=== PATIENT | female | born 1955 | race Caucasian/White ===

== ENCOUNTER 2016-05-07 09:19 | Emergency (ER) | payer BC ==
[2016-05-07] MEDS ORDERED: Ketorolac INJ* 30 MG/ML 1 ML VIAL IM ONE (10:47)
[2016-05-07] MEDS ORDERED: SUMAtriptan SQ* 6 MG/0.5 ML VIAL SUBCUT ONE (10:48)
[2016-05-07] MEDS ORDERED: Ondansetron ODT TAB* 4 MG PO ONE (10:49)
[2016-05-07] MEDS ORDERED: Metoclopramide TAB* 10 MG PO ONE (10:49)
[2016-05-07 11:00] VITALS: BP 135/83
--- NOTE | 2016-05-07 11:15 | UC ---
General HPI - HPI Summary HPI Summary: Today she was hit in the face by a cow. the impact was under the nose. she has no blurry vision or trouble breathing. no headache. no diploplia. - History of Current Complaint Chief Complaint: UCHeadInjury Stated Complaint: FACIAL INJURY Time Seen by Provider: 05/07/16 10:42 Hx Obtained From: Patient Onset/Duration: Sudden Onset - Allergy/Home Medications Allergies/Adverse Reactions: Allergies Allergy/AdvReac Type Severity Reaction Status Date / Time Codeine Allergy GI Upset Verified 05/07/16 10:49 Ibuprofen Allergy Kidney Verified 05/07/16 10:49 Failure Iodine Allergy Facial Verified 05/07/16 10:49 Swelling Morphine Allergy Anaphylatic Verified 05/07/16 10:49 Shock Gluten Allergy GI Upset, Uncoded 05/07/16 10:49 Burping Poultry Allergy Congestion, Uncoded 05/07/16 10:49 Vomiting, Diarrhea PMH/Surg Hx/FS Hx/Imm Hx Endocrine History Of: Reports: Thyroid Disease - hypo Cardiovascular History Of: Reports: Hypertension - Surgical History Surgical History: Yes Surgery Procedure, Year, and Place: Cholecystectomy. Hysterectomy. Left Rotator Cuff Repair. Left Knee Meniscus Arthroscopy. Stomach Bypass for blockage - Family History Known Family History: Positive: Hypertension - Social History Occupation: Employed Full-time - [employer]. Alcohol Use: None Substance Use Type: None Smoking Status (MU): Never Smoked Tobacco Review of Systems Eyes: Negative All Other Systems Reviewed And Are Negative: Yes Physical Exam Triage Information Reviewed: Yes Appearance: Well-Appearing, No Pain Distress, Well-Nourished Vital Signs: Initial Vital Signs Temp 98.7 F 05/07/16 10:51 Pulse 58 05/07/16 10:51 Resp 18 05/07/16 10:51 BP 135/83 05/07/16 10:51 Pulse Ox 100 05/07/16 10:51 Vital Signs Reviewed: Yes Eye Exam: Normal Eyes: Positive: Conjunctiva Clear ENT Exam: Other - bridge of nose bruised and tender but well alligned. there is mild bruising under the left eye and maxilla. orbits intact. EOMI. jaw full rom and she is able to bite down without significant pain.no septal hematoma. septum does appear mildly deviated to the left. ENT: Positive: Pharynx normal, Pharyngeal erythema, Nasal congestion Dental Exam: Normal Neck exam: Normal Neck: Positive: Supple Respiratory Exam: Normal Respiratory: Positive: Chest non-tender Cardiovascular Exam: Normal Abdominal Exam: Normal Musculoskeletal Exam: Normal, Other - walks to exam table with limp but states this is chronic Neurological Exam: Normal Neurological: Positive: Alert, Muscle Tone Normal. Negative: Fatigued, Lethargic Psychological Exam: Normal Skin Exam: Other - bruising about the nose and left maxilla. Course/Dx - Course Course Of Treatment: nose is well aligned but there is evidence of fracture and septum deviation. she would likie to f/u with ent but no need to see ent today as there is no surgery or alignment that needs to be done today. - Differential Dx - Multi-Symptom Provider Diagnoses: nasal fracture. nasal septum deviation. Discharge - Discharge Plan Condition: Good Disposition: HOME Patient Education Materials: Nasal Fracture (ED) Referrals: Delano Lane MD [Medical Doctor] - 3 Days
== END 2016-05-07 11:26 | disposition home or self-care (01) ==
LOC: UCCORT 09:19
DX: S02.2XXA Fracture of nasal bones, initial encounter for closed fracture (principal); W55.22XA Struck by cow, initial encounter; Y93.89 Activity, other specified; Y92.79 Other farm location as the place of occurrence of the external cause; Y99.0 Civilian activity done for income or pay; J34.2 Deviated nasal septum; I10 Essential (primary) hypertension; E03.9 Hypothyroidism, unspecified
CPT/HCPCS: 99211; G0463

== ENCOUNTER 2017-05-19 10:44 | Emergency (ER) | payer BC, OTHER ==
[2017-05-19 11:29] VITALS: BP 139/87
--- NOTE | 2017-05-19 11:45 | UC ---
Upper Extremity HPI - HPI Summary HPI Summary: pain right forearm x 1 day injury at work , sudden onset sharp pain on her right forearm as she was opening a big jar + pain and swelling proximal right forearm - History of Current Complaint Chief Complaint: UCUpperExtremity Stated Complaint: RIGHT FOREARM INJURY WC Time Seen by Provider: 05/19/17 11:31 Hx Obtained From: Patient Onset/Duration: Sudden Onset, Lasting Hours - 2, Still Present Severity Initially: Moderate Severity Currently: Moderate Location Of Pain: Is Discrete @ - right forearm Aggravating Factor(s): Flexion, Abduction Alleviating Factor(s): Rest Associated Signs And Symptoms: Positive: Swelling, Weakness. Negative: Redness , Bruising, Fever, Numbness/Tingling, Other - Allergies/Home Medications Allergies/Adverse Reactions: Allergies Allergy/AdvReac Type Severity Reaction Status Date / Time Codeine Allergy GI Upset Verified 05/19/17 11:30 Ibuprofen Allergy Kidney Verified 05/19/17 11:30 Failure Iodine Allergy Facial Verified 05/19/17 11:30 Swelling Morphine Allergy Anaphylatic Verified 05/19/17 11:30 Shock Gluten Allergy GI Upset, Uncoded 05/19/17 11:30 Burping Poultry Allergy Congestion, Uncoded 05/19/17 11:30 Vomiting, Diarrhea PMH/Surg Hx/FS Hx/Imm Hx Endocrine History: Hypothyroidism Cardiovascular History: Hypertension - Surgical History Surgical History: Yes Surgery Procedure, Year, and Place: Cholecystectomy. Hysterectomy. Left Rotator Cuff Repair. Left Knee Meniscus Arthroscopy. Stomach Bypass for blockage - Family History Known Family History: Positive: Hypertension - Social History Alcohol Use: None Substance Use Type: None Smoking Status (MU): Never Smoked Tobacco - Immunization History Most Recent Influenza Vaccination: poultry allergy Review of Systems Constitutional: Negative Skin: Negative Eyes: Negative ENT: Negative Respiratory: Negative Is Patient Immunocompromised?: No All Other Systems Reviewed And Are Negative: Yes Physical Exam Triage Information Reviewed: Yes Appearance: Well-Appearing, No Pain Distress, Well-Nourished Vital Signs: Initial Vital Signs Temp 97.7 F 05/19/17 11:24 Pulse 51 05/19/17 11:24 Resp 14 05/19/17 11:24 BP 139/87 05/19/17 11:24 Pulse Ox 100 05/19/17 11:24 Eyes: Positive: Conjunctiva Clear ENT: Positive: Normal ENT inspection, Hearing grossly normal, Pharynx normal Neck exam: Normal Neck: Positive: Supple, Nontender, No Lymphadenopathy Respiratory: Positive: Chest non-tender, Lungs clear, Normal breath sounds Cardiovascular: Positive: RRR, No Murmur, Pulses Normal Musculoskeletal: Positive: Other: - right forearm : no ecchymosis, + swelling, tender , good ROM of the right elbow , decrease strength Upper Extremity Course/Dx - Differential Dx/Diagnosis Provider Diagnoses: right foream pain. muscle strain right forearm. muscle tearm right forearm Discharge - Discharge Plan Condition: Stable Disposition: HOME Patient Education Materials: Arm Pain (ED) Referrals: Miguel Gongora MD [Medical Doctor] - As Soon As Possible Keri Moon MD [Primary Care Provider] - Additional Instructions: injury right forearm concern about muscle tear / partial tear cont. with rest, ice, ibuprofen no lifting using your right arm referral to ortho lázaro for eval and tx
== END 2017-05-19 11:46 | disposition home or self-care (01) ==
LOC: UCCORT 10:44
DX: S56.911A Strain of unspecified muscles, fascia and tendons at forearm level, right arm, initial encounter (principal); X50.0XXA Overexertion from strenuous movement or load, initial encounter; Y93.89 Activity, other specified; Y92.9 Unspecified place or not applicable
CPT/HCPCS: 99211; G0463

== ENCOUNTER 2017-09-20 17:25 | Emergency (ER) | payer BC, OTHER ==
[2017-09-20 18:21] VITALS: BP 164/83
--- NOTE | 2017-09-20 19:49 | ED ---
Head Injury - HPI Summary HPI Summary: 62 yr old female with the complaint of hit in the left side of forehead with a metal pipe. Her was pulling on a pipe and it slipped and hit her a couple hours ago. she had only localized headache 5/10 and now is 3/10. No LOC , no seizure, no focal weakness, no numbness, no dizziness, no change in vision , speech or hearing. She has not had vomiting - History Of Current Complaint Chief Complaint: UCHeadInjury Stated Complaint: HEAD INJURY Time Seen by Provider: 09/20/17 19:40 Pain Intensity: 5 - Allergies/Home Medications Allergies/Adverse Reactions: Allergies Allergy/AdvReac Type Severity Reaction Status Date / Time codeine Allergy GI Upset Verified 09/20/17 18:24 ibuprofen Allergy See Comment Verified 09/20/17 18:24 iodine Allergy Anaphylatic Verified 09/20/17 18:24 Shock morphine Allergy Facial Verified 09/20/17 18:24 Redness/Flushing Gluten Allergy GI Upset, Uncoded 05/19/17 11:30 Burping Poultry Allergy Congestion, Uncoded 05/19/17 11:30 Vomiting, Diarrhea PMH/Surg Hx/FS Hx/Imm Hx Endocrine/Hematology History: Reports: Hx Thyroid Disease - hypo Cardiovascular History: Reports: Hx Hypertension - Surgical History Surgery Procedure, Year, and Place: TONSILLECTOMY. Cholecystectomy. Hysterectomy. Left Rotator Cuff Repair. Left Knee Meniscus Arthroscopy. Stomach Bypass for blockage Infectious Disease History: No Infectious Disease History: Reports: Hx Clostridium Difficile - 2005 Denies: Traveled Outside the [place] in Last 30 Days - Family History Known Family History: Positive: Hypertension - Social History Alcohol Use: None Substance Use Type: Reports: None Smoking Status (MU): Never Smoked Tobacco Review of Systems All Other Systems Reviewed And Are Negative: Yes Physical Exam Triage Information Reviewed: Yes Vital Signs On Initial Exam: Initial Vitals Temp Pulse Resp BP Pulse Ox 98.1 F 77 17 164/83 99 09/20/17 18:14 09/20/17 18:14 09/20/17 18:14 09/20/17 18:14 09/20/17 18:14 Vital Signs Reviewed: Yes Appearance: Positive: Well-Appearing, No Pain Distress Skin: Positive: Warm, Skin Color Reflects Adequate Perfusion Head/Face: Positive: Other - left forehead cam Eyes: Positive: EOMI, JON ENT: Positive: Normal ENT inspection Neck: Positive: Supple, Nontender Respiratory/Lung Sounds: Positive: Clear to Auscultation, Breath Sounds Present Cardiovascular: Positive: RRR. Negative: Murmur Abdomen Description: Positive: Nontender Musculoskeletal: Positive: Strength/ROM Intact Neurological: Positive: Sensory/Motor Intact, Alert, Oriented to Person Place, Time, CN Intact II-III, Normal Gait, Speech Normal Psychiatric: Positive: Normal AVPU Assessment: Alert - Jonathan Coma Scale Best Eye Response: 4 - Spontaneous Best Motor Response: 6 - Obeys Commands Best Verbal Response: 5 - Oriented Coma Scale Total: 15 Diagnostics - Vital Signs Vital Signs Temp Pulse Resp BP Pulse Ox 09/20/17 18:14 98.1 F 77 17 164/83 99 - Laboratory Lab Statement: Any lab studies that have been ordered have been reviewed, and results considered in the medical decision making process. Head Injury Course/Dx Course Of Treatment: 62 yr old with minor head injury. DC home. - Diagnoses Provider Diagnoses: Head injury, Hypertension Discharge - Sign-Out/Discharge Documenting (check all that apply): Discharge/Admit/Transfer - Discharge Plan Condition: Good Disposition: HOME Patient Education Materials: Head Injury (ED), Hypertension (ED) Referrals: Keri Moon MD [Primary Care Provider] - 2 Days - Billing Disposition and Condition Condition: GOOD Disposition: HOME
== END 2017-09-20 19:50 | disposition home or self-care (01) ==
LOC: UCCORT 17:25
DX: S09.90XA Unspecified injury of head, initial encounter (principal); W22.8XXA Striking against or struck by other objects, initial encounter; Y93.89 Activity, other specified; Y92.009 Unspecified place in unspecified non-institutional (private) residence as the place of occurrence of the external cause; Z88.6 Allergy status to analgesic agent; Z88.5 Allergy status to narcotic agent; Z91.018 Allergy to other foods
CPT/HCPCS: 99211; G0463

== ENCOUNTER 2018-01-28 11:06 | Emergency (ER) | payer BC ==
[2018-01-28 11:52] VITALS: BP 121/84
--- NOTE | 2018-01-28 12:53 | UC ---
Throat Pain/Nasal Favio HPI - HPI Summary HPI Summary: Pt presents with c/o sudden onset of nasal congestion and sinus pressure, generalized malaise X 3 days. Pt is concerned that she has a sinus infection. - History of Current Complaint Chief Complaint: UCGeneralIllness Stated Complaint: SINUS COMPLAINT Time Seen by Provider: 01/28/18 12:49 Hx Obtained From: Patient ?: No Onset/Duration: Sudden Onset, Lasting Days Severity: Moderate Pain Intensity: 6 Cough: None Associated Signs & Symptoms: Positive: Sinus Discomfort, Fever - subjective - Epiglottits Risk Factors Epiglottis Risk Factors: Negative - Allergies/Home Medications Allergies/Adverse Reactions: Allergies Allergy/AdvReac Type Severity Reaction Status Date / Time codeine Allergy GI Upset Verified 09/20/17 18:24 ibuprofen Allergy See Comment Verified 09/20/17 18:24 iodine Allergy Anaphylatic Verified 09/20/17 18:24 Shock morphine Allergy Facial Verified 09/20/17 18:24 Redness/Flushing Gluten Allergy GI Upset, Uncoded 05/19/17 11:30 Burping Poultry Allergy Congestion, Uncoded 05/19/17 11:30 Vomiting, Diarrhea Home Medications: Home Medications Acetaminophen [Acetaminophen Extra Strength] 1,000 mg PO Q8H 01/28/18 [History Confirmed 01/28/18] PMH/Surg Hx/FS Hx/Imm Hx Previously Healthy: Yes Cardiovascular History: Hypertension - Surgical History Surgical History: Yes Surgery Procedure, Year, and Place: TONSILLECTOMY. Cholecystectomy. Hysterectomy. Left Rotator Cuff Repair. Left Knee Meniscus Arthroscopy. Stomach Bypass for blockage - Family History Known Family History: Positive: Hypertension - Social History Occupation: Employed Full-time Lives: With Family Alcohol Use: None Substance Use Type: None Smoking Status (MU): Never Smoked Tobacco Have You Smoked in the Last Year: No - Immunization History Most Recent Influenza Vaccination: poultry allergy Review of Systems Constitutional: Fever, Chills, Fatigue Skin: Negative Eyes: Negative ENT: Sore Throat Respiratory: Negative Cardiovascular: Negative Gastrointestinal: Negative Genitourinary: Negative Motor: Negative Neurovascular: Negative Musculoskeletal: Myalgia Neurological: Headache Psychological: Negative Is Patient Immunocompromised?: No All Other Systems Reviewed And Are Negative: Yes Physical Exam Triage Information Reviewed: Yes Appearance: Ill-Appearing Vital Signs: Initial Vital Signs Temp 97.6 F 01/28/18 11:47 Pulse 57 01/28/18 11:47 Resp 17 01/28/18 11:47 BP 121/84 01/28/18 11:47 Pulse Ox 98 01/28/18 11:47 Vital Signs Reviewed: Yes Eye Exam: Normal ENT: Positive: Nasal congestion, Sinus tenderness Dental Exam: Normal Neck exam: Normal Respiratory Exam: Normal Cardiovascular Exam: Normal Musculoskeletal Exam: Normal Neurological Exam: Normal Psychological Exam: Normal Skin Exam: Normal Throat Pain/Nasal Course/Dx - Course Course Of Treatment: I discussed with the pt my consideration for viral infection but pt requested antibiotics as "she didn't want it to get worse" - Differential Dx/Diagnosis Differential Diagnosis/HQI/PQRI: Influenza, Sinusitis, URI Provider Diagnoses: sinusitis Discharge - Sign-Out/Discharge Documenting (check all that apply): Patient Departure All imaging exams completed and their final reports reviewed: No Studies - Discharge Plan Condition: Stable Disposition: HOME Prescriptions: Azithromycin TAB* [Zithromax TAB (Z-JULIO) 250 mg #6 tabs] 2 tab PO .TODAY, THEN 1 DAILY #1 julio Chlorpheniramine/Dextromethorp [Coricidin Hbp Cough & Cold Tab] 1 each PO SEE INSTRUCTIONS PRN #1 [id number] PRN Reason: Cough Patient Education Materials: Sinusitis (ED) Referrals: Keri Moon MD [Primary Care Provider] - If Needed - Billing Disposition and Condition Condition: STABLE Disposition: Home
== END 2018-01-28 13:04 | disposition home or self-care (01) ==
LOC: UCCORT 11:06
DX: J32.9 Chronic sinusitis, unspecified (principal); Z88.5 Allergy status to narcotic agent; Z88.6 Allergy status to analgesic agent; I10 Essential (primary) hypertension
CPT/HCPCS: 99212; G0463